=== PATIENT | female | born 1955 | race Caucasian/White ===

== ENCOUNTER → 2016-11-06 | Day surgery (SDC) | payer OTHER ==
[~2016-11-06] VITALS: Ht 177.8 cm; Wt 86.2 kg
[2016-11-06] VITALS (9 sets, daily range): BP systolic 95–139; BP diastolic 42–77; PULSE 11–87; RESP 8–53; O2SAT 97–100
[~2016-11-06] MED LIST: CeFAZolin 2 Gm/50 mL D5W Duplex Bag IV ONE; Dexamethasone 4 mg/mL Inj IVPUSH PRN; Dexamethasone 4 mg/mL Inj ONE; EPHEDrine Sulfate 50 mg/mL Inj IVPUSH PRN; Glycopyrrolate 0.2 MG/ML 1mL Inj ONE; HYDROcodone-APAP 10-325 mg PO PRN; LISI-567 PO; Lactated Ringer's 1,000 ML IV SCH; Lactated Ringer's 500 ML IV PRN; MULT-1018 PO; MetoCLOpramide 5 mg/mL 2 mL Inj IVPUSH PRN; Neostigmine 1 mg/mL 10 mL Inj ONE; Ondansetron 2 mg/mL 2 mL Inj IVPUSH PRN; Ondansetron 2 mg/mL 2 mL Inj ONE; PRAV40TA PO; Phenylephrine 10,000 mCg/mL Inj IVPUSH PRN; Propofol 10 mg/mL 20 mL Inj ONE; fentaNYL-PF 50 mCg/mL 2 mL Inj ONE
[2016-11-06] MEDS: Lactated Ringer's 1,000 ML IV SCH ×2 (06:23→07:25)
--- NOTE | 2016-11-06 06:48 | PCM.HPANE ---
Patient Data Surgeon Admitting Provider: Attending Provider:Salas De La Cruz MD Primary Care Physician:Juli Other Provider:Seema [place] Anesthesia Reason for Visit Macromastia, Chronic Back Pain, Rash Ht/WT & BMI Height (Feet): 5 Height (Inches): 10 Weight (Kilograms): 86.2 Body Mass Index 27.00 Allergies Coded Allergies: No Known Allergies (Unverified , 10/31/16) Past Anesthesia History Anesthesia History: Positive for:: Anesthesia Reactions (seizure "long ago" during foot surgery- ), Denies:: Abnormal Airway, Difficult Intubation, Fam Anesthesia Reaction, Malignant Hyperthermia Diabetes History Hx Diabetes?: No MRSA MRSA: No Medications Hypertension Medication: Yes Home Meds Incl Beta Liu: No Reported Medications Pravastatin 40 Mg [id number] Mg PO DAILY Ref 0 10/31/16 Lisinopril 20 Mg [id number] Mg PO DAILY 30 Days Ref 0 10/31/16 Multivitamin (Multi Vitamin Daily)1 Each Tablet1 Each PO DAILY 30 Days Ref 0 10/31/16 History History of ENT Problems?: No HEENT History: Positive for:: TMJ (grinds teeth, no nightguard yet) Denies:: Abnormal Airway Cataracts Difficult Intubation Dysphagia Glaucoma Hearing Problem Sinus Problem Denture Type: None Teeth Condition: Broken Teeth Other HEENT Pertinent History: Multiple chipped teeth with crown on upper left premolar Hx of Heart Problems?: No Cardiovascular History: Positive for:: Hypertension Denies:: AICD Abdominal Aortic Aneurism Atrial Fibrillation Cardiac Surgery Chest Pain Congestive Heart Failure Coronary Artery Disease Edema Heart Murmur Irregular Heartbeat Pacemaker Peripheral Vascular Rheumatic Fever Hx of Respiratory Problem?: No Respiratory History: Denies:: Asthma COPD Emphysema Oxygen Administration Pneumonia Tuberculosis Use of C-PAP Machine Hx Neurologic Problems?: No Neurological History: Denies:: CVA Dementia Dizziness Headaches Multiple Sclerosis Parkinson's Disease Seizures TIA Hx of GI Problems?: No Hx of Problems?: No Genitourinary History: Denies:: Kidney Stones Urinary Tract Infection Female Hx: Positive for:: Problems with Breasts? (macromastia current admission problem) Denies:: Currently Skin History: Denies:: History Skin Disorders? Pressure Ulcers Hx Musculoskeletal Problems?: No Musculoskeletal History: Denies:: Back Injury Fibromyalgia Joint Replacement Musculoskeletal Trauma Myasthenia Gravis Osteoarthritis Systemic Lupus Hx of Psycho/Social Problems?: No Psycho Social History: Denies:: Anxiety Hx Depression Hx Surgeries?: Yes (foot, shoulder) Hx Any Other Health Problems?: Yes Other History: Denies:: Cancer Thyroid Disease History Blood Transfusions: Positive for:: Accept Blood Products? Denies:: Blood Transfusions Hx Diabetes: No Hx Alcohol Use: NoHx Substance Use: NoHave You Smoked inLast 12 mo: No Stop/Bang P-Blood Pressure: treated: Yes B- Body Mass Index > 35 kg/m2: No A- Age over 50: Yes N- Neck Large Circumference: No G- Gender Male: No Risk Assessment Category Category 1A: Patient has history of documented sleep apnea, and HAS NOT received any narcotic, sedative or anesthesia administration during this stay. Category 1B: Patient has history of documented sleep apnea, and HAS received any narcotic , sedative or anesthesia administration during this stay Category 2: Patient has SUSPECTED Obstructive Sleep Apnea, and HAS received any narcotic , sedative or anesthesia administration during this stay. Category 3: Patient has SUSPECTED Obstructive Sleep Apnea and HAS NOT received narcotic, sedative or anesthesia administration during this stay. Category 4: Outpatient in Procedural Areas with known sleep apnea or who screen positive for High Risk via the STOP/BANG questionnaire. Exam Exam Vital Signs Vital Signs Date Time Temp Pulse Resp B/P Pulse Ox O2 Delivery O2 Flow Rate FiO2 11/06/16 06:00 36.6 62 16 139/77 99 Room Air General Appearance: Alert, Oriented X3, Cooperative, No Acute Distress HEENT/AIRWAY: MP 1, Neck Movement (WNL), Mouth Opening (3fb) Lungs: Normal Air Movement Heart: Regular Rate/Rhythm Meds/Labs/Diagnostics Admission Meds Current Medications Lactated Ringer's (Lr) 1,000 ml @ 120 mls/hr [id number] IV Last administered on t 06:23; Start 11/06/16 at 05:00; Stop 11/06/16 at 13:19 Plan Impression Patient chart reviewed, patient interviewed and anesthestic plan with risks, benefits, and alternatives discussed, and informed consent obtained. ASA Physical Status: ASA1 Normal Healthy Anesthetic Plan: GA Bene/Risks/Altern/Consents: Yes HP Complete Prior to Induction: Yes Shalom Rojas MD Nov 06, 2016 06:48
[2016-11-06] MEDS: fentaNYL-PF 50 mCg/mL 2 mL Inj IVPUSH PRN ×3 (10:06→10:25)
[2016-11-06] MEDS: HYDROmorphone 1 mg/mL Inj IVPUSH PRN ×2 (10:06→10:17)
--- NOTE | 2016-11-06 11:51 | PCM.ANEP1 ---
Post Anesthesia PACU Phase 1 Assessment Vital Signs Vital Signs Date Time Temp Pulse Resp B/P Pulse Ox O2 Delivery O2 Flow Rate FiO2 11/06/16 10:47 36.2 49 14 114/52 100 Room Air 11/06/16 10:43 52 12 119/44 97 Room Air 11/06/16 10:30 55 12 124/48 98 Room Air 11/06/16 10:15 36.0 45 15 118/54 100 Simple Mask 8 11/06/16 10:10 68 8 135/50 100 Simple Mask 8 11/06/16 10:05 67 53 126/60 100 Simple Mask 8 11/06/16 10:00 86 18 132/62 100 Simple Mask 8 11/06/16 09:55 36.4 87 19 95/42 100 Simple Mask 8 11/06/16 06:00 36.6 62 16 139/77 99 Room Air Anesthetic Administered: GA Level of Alertness: Awake, talking Pain: No Nausea or Vomiting: No CV Function & Hydration Stable: Yes Airway Device: None Lungs: Normal Air Movement PACU Phase 2 Assessment Complications: No Follow up Care: N/A Patient Instructions Provided: N/A Shalom Rojas MD Nov 06, 2016 11:51
--- NOTE | 2016-11-08 12:12 | OP ---
[address] [address] OPERATIVE REPORT PATIENT: GET SALOMON : 1955 MR#: [id number] ADMIT: 11/06/2016 JOB ID: [id number] DATE OF SURGERY: 11/06/2016 PREOPERATIVE DIAGNOSIS(ES): 1. Bilateral symptomatic macromastia. 2. Thoracic back pain. 3. Rash. POSTOPERATIVE DIAGNOSIS(ES): 1. Bilateral symptomatic macromastia. 2. Thoracic back pain. 3. Rash. PROCEDURE: Bilateral breast reduction. SURGEON: Salas De La Cruz MD GOVERNMENT AFFAIRS SPECIALIST: Farhat Pugh PA-C, who was present for the necessary retraction, exposure, and closure. ANESTHESIA: General anesthesia. ESTIMATED BLOOD LOSS: 30 mL. COMPLICATIONS: None apparent. SPECIMEN: Bilateral breast tissue to Pathology. Right side weighing 0.55 kg. Left side 0.58 kg. DRAINS: Bilateral #10 round Iain drains, one on each side. INDICATIONS FOR PROCEDURE: This is a 61-year-old female patient with bilateral symptomatic macromastia with thoracic back pain, inframammary rash, and bra strap grooving. The patient's symptoms have been refractory to conservative and routine management. At this point bilateral breast reduction is indicated. PROCEDURE AND FINDINGS: The patient was identified in the preoperative area and the surgical sites were marked. With the patient in sitting position, I marked the sternal notch and the midline, as well as the inframammary fold. A Cohen pattern was then marked on the patient with a new nipple position at 22.5 cm. Cohen pattern limbs were 8 cm each. The patient was then taken back to the operating room and placed supine on the operating table. Appropriate time-outs were taken. General anesthesia was induced smoothly. I completed the Cohen pattern marking with the patient in supine position. The patient was then prepped and draped in the usual sterile manner. I first turned my attention to the right breast. With the nipple under slight tension, a 42 mm nipple sizer was used to abdias the new nipple-areolar complex. An incision was then made around the new nipple-areolar complex. An incision was then made around the inferior pedicle which was 10 cm at its base. The intervening skin was de-epithelialized. Incisions were then made around the rest of the Coehn pattern incision with a #10 blade. The incisions were then deepened down into the subcutaneous tissue with thin incisions with electrocautery. Incision was also made around the inferior pedicle with electrocautery, except for the base of the pedicle, which was left intact. I then turned my attention to elevating the superior skin flaps. The medial flap started at approximately 2 cm thick. I thickened the flap to approximately 3 cm as I reached the pectoralis major fascia. Laterally, the skin flap was elevated along the breast capsule, down to the chest fascia. Incisions were then deepened around the inferior pedicle toward the chest wall, flaring away from the pedicle as I deepened the incision to capture more perforators. Once the pedicle had been developed, the tissue between the pedicle and the skin flaps was elevated off the chest wall fascia and passed off to Pathology as a specimen. Hemostasis was obtained with electrocautery. The incision was then temporarily stapled together. Using a 42 mm nipple sizer centered at 7 cm from the inframammary fold, a new nipple areolar keyhole was made with a #15 blade. The incision was then deepened through the skin flap, removing the keyhole. The nipple was externalized. I then turned my attention to the left breast, where a similar reduction was carried out. Again, a 42 mm nipple sizer was used to abdias the new nipple-areolar complex. The inferior pedicle was marked that is 10 cm at its base. The intervening skin was de-epithelialized. Cohen pattern incisions were then made with a #10 blade. Skin flap was developed. Inferior pedicle was defined in a similar manner to the right side. The tissue between the dissection planes was then elevated off the chest wall and passed off to Pathology as a specimen. Again, the incisions were temporarily stapled together and a new nipple-areolar complex keyhole was marked with a 42 mm sizer center at 7 cm from the IMF. The keyhole was removed and the nipple externalized. At this point the breasts had similar contour and volume. The right-sided breast tissue weighed 0.55 kg while the left side weighed 0.58 kg. A #10 round Iain drain was then obtained and placed into the surgical sites, one on each side, exiting out the lateral end of the inframammary incision. The drains were secured with 3-0 nylon drain stitches. The incisions were then reapproximated, first with a layer of 3-0 Monocryl deep dermal suture, followed by 4-0 Monocryl running subcuticular suture. The patient tolerated the procedure well. Needle count, sponge count, and instrument counts were correct at the end of the procedure. The patient was extubated and transported to recovery in stable condition.
== END | disposition home or self-care (01) ==
LOC: SAS 05:30
PROVIDERS: ATTEND Plastic Surgery
PROC: 0HBV0ZZ Excision of Bilateral Breast, Open Approach (ICD-10-PCS; principal; 2016-11-06 07:30)
DX: N62 Hypertrophy of breast (principal); M54.6 Pain in thoracic spine; R21 Rash and other nonspecific skin eruption; I10 Essential (primary) hypertension
CPT/HCPCS: 19318; J0690; J1100; J1170; J1885; J2250; J2405; J2704; J2710; J3010; J7120